=== PATIENT | female | born 1970 | race Caucasian/White ===

== ENCOUNTER → 2020-02-20 15:35 | Outpatient (CLI) | payer OTHER, SELFPAY ==
--- NOTE | ~2020-02-20 | XR_ITS ---
EXAMINATION: XR wrist RT w scaphoid DATE: 02/20/2020 16:16 INDICATION: Right wrist injury. TECHNIQUE: 5 views of right wrist were obtained. COMPARISON: None. FINDINGS: Bone alignment is normal. No fracture. There is mild osteoarthritis of triscaphe joint and first carpometacarpal joint. IMPRESSION: 1. Mild polyarticular osteoarthritis. Reviewed, dictated and finalized at location A.
== END ==
PROVIDERS: PCP Family Medicine; Visit Provider Physician Assistant
DX: S69.91XA Unspecified injury of right wrist, hand and finger(s), initial encounter (principal); X58.XXXA Exposure to other specified factors, initial encounter; M19.031 Primary osteoarthritis, right wrist
CPT/HCPCS: 73110

== ENCOUNTER 2020-03-11 06:57 | Outpatient (NON) | payer OTHER, SELFPAY ==
[2020-03-11 17:42] LABS: SARS-CoV-2 RNA PCR Negative
== END 2020-03-11 06:58 ==
PROVIDERS: PCP Family Medicine; Visit Provider Family Medicine
DX: Z20.828 Contact with and (suspected) exposure to other viral communicable diseases (principal); R05 Cough
CPT/HCPCS: 87635; C9803; U0003

== ENCOUNTER 2020-03-12 14:51 | Emergency (ER) | payer OTHER, SELFPAY ==
[2020-03-12 15:04] VITALS: BP 139/85; PULSE 83; RESP 16; TEMP 36.5; O2SAT 99
--- NOTE | 2020-03-12 15:11 | ED.GENADULT ---
HPI - General Adult General Chief complaint: Upper Respiratory Infection Stated complaint: Cold/Flu Sx Time Seen by Provider: 03/12/20 15:11 Source: patient and RN notes reviewed Mode of arrival: ambulatory Limitations: no limitations History of Present Illness HPI narrative: 49-year-old female presents with complaints of upper respiratory infection, facial congestion, chills, low-grade fever, cough, and intermittent headaches (not the worst of her life) for the past 6 days. Symptoms increasing with coughing and ear pressure and full feeling. Zyrtec, NyQuil, DayQuil, and Vicks rub with some relief. No facial swelling. Dry cough without chest congestion. Nasal congestion and rhinorrhea. No chest pain or shortness of breath. Exacerbating factors consist of vaping. Denies fever or chills. Denies nausea, vomiting, and abdominal pain. Tolerating po intake well. LMP hysterectomy. Remains active. Anila received her COVID-19 test today in which was NEGATIVE (verified per this provider). Denies recent traveling. Denies concerns for COVID-19 or exposures been home with limited outdoor exposure except for essential household needs, work, and return home. At this time, patient is not suspected of having COVID-19. Some parts of this dictation were generated by voice recognition software and may contain typographical and/or grammatical inaccuracies. Related Data Home Medications Medication Instructions Recorded Confirmed multivitamin 1 tablet PO DAILY 02/20/20 03/12/20 valacyclovir 500 mg tablet 500 mg PO DAILY 02/20/20 03/12/20 cetirizine [Zyrtec] 10 mg PO DAILY 03/12/20 03/12/20 Allergies Allergy/AdvReac Type Severity Reaction Status Date / Time EPIDURAL ANESTHESIA Allergy Mild nausea and Uncoded 03/12/20 15:21 vomiting Review of Systems Review of Systems: Narrative: CONSTITUTIONAL: Denies fever, chills, sweats. EYES: Denies visual changes, redness, discharge. ENT: Complains of rhinorrhea, congestion, ear pressure and fullness. Denies sore throat, otalgia. CARDIOVASCULAR: Denies chest pain, palpitations, edema. RESPIRATORY: Denies dyspnea, wheezing. Complains of dry cough. GASTROINTESTINAL: Denies abdominal pain, nausea, vomiting, diarrhea. GENITOURINARY: Denies dysuria, hematuria, abnormal discharge. SKIN: Denies rash or itching. MUSCULOSKELETAL: Denies acute back pain, joint pain, or myalgia. NEUROLOGIC: Denies numbness or focal weakness. Complains of intermittent LANDIN. PSYCHIATRIC: Denies anxiety or depression. All systems reviewed & are unremarkable except as noted in HPI and below. [facility] Past Medical History Medical History (Updated 03/12/20 @ 16:00 by ARANZA Stephenson) Allergic rhinitis delivery delivered Depression with anxiety Endometriosis determined by laparoscopy Herpes genitalis in women Surgical History Surgical History (Updated 03/12/20 @ 16:01 by ARANZA Stephenson) H/O section X1 for twin delivery in 1993 History of bunionectomy bilateral History of exploratory laparotomy X2 History of hysterectomy 2009 History of tonsillectomy Hx of appendectomy S/P cholecystectomy Family History Family History (Updated 03/12/20 @ 16:02 by ARANZA Stephenson) Mother Family history of malignant neoplasm of breast in first degree relative Hypertension Father Hypertension, Onset Age: 69 Sibling Patient's brother is in good health, Onset Age: 37 Other Diabetes mellitus Family history of arthritis Family history of cardiovascular disease Social History Social History (Updated 03/12/20 @ 16:03 by RAANZA Stephenson) Smoking status: Current every day smoker Tobacco type: e-cigarettes/vaping Second hand tobacco smoke exposure: No Smoking end date: 05/24/13 Alcohol intake: current Substance use: never Living arrangements: with family Occupation/Education: occupation Additional occupation/education comments: Teacher [employer]
== END 2020-03-12 15:36 | disposition home or self-care (01) ==
PROVIDERS: Emergency Provider Nurse Practitioner Family; PCP Family Medicine
DX: J40 Bronchitis, not specified as acute or chronic (principal); N80.9 Endometriosis, unspecified
CPT/HCPCS: 99213; G0463

== ENCOUNTER → 2020-10-09 09:34 | Outpatient (CLI) | payer OTHER, SELFPAY ==
[2020-10-09 16:16] LABS: SARS-CoV-2 RNA PCR Negative
== END ==
PROVIDERS: PCP Family Medicine; Visit Provider Physician Assistant
DX: Z20.822 Contact with and (suspected) exposure to COVID-19 (principal); R05 Cough
CPT/HCPCS: C9803; U0003; U0005